=== PATIENT | female | born 1970 | race Caucasian/White ===

== ENCOUNTER 2019-03-16 12:17 | Emergency (ER) | payer SELFPAY ==
[~2019-03-16] VITALS: Ht 165.1 cm; Wt 52.0 kg
[~2019-03-16 12:17] MED LIST: TRAM50TA94 PO
[2019-03-16 12:21] VITALS: BP 99/77
== END 2019-03-16 14:20 | disposition left against medical advice (07) ==
LOC: ER 12:17
DX: Z53.21 Procedure and treatment not carried out due to patient leaving prior to being seen by health care provider (principal)